=== PATIENT | male | born 1980 | race Caucasian/White ===

== ENCOUNTER 2016-08-29 19:14 | Inpatient (IN) ==
[2016-08-29 22:09] LABS: Basophils # 0.1 K/mcL (0.0-0.2); Basophils % 0.9 %; Eosinophils # 0.1 K/mcL (0.0-0.6); Eosinophils % 1.4 %; Hematocrit 48.3 % (37.5-50.1); Hemoglobin 15.9 g/dL (12.9-16.9); Immature Granulocytes % 0.3 % (0-4); Lymphocytes # 2.9 K/mcL (0.6-4.6); Lymphocytes % 33.1 %; Mean Corpuscular HGB Conc 32.9 g/dL (31.6-35.5); Mean Corpuscular Hemoglobin 28.5 pg (28.0-33.3); Mean Corpuscular Volume 86.7 fL (83.0-100.0); Mean Platelet Volume 8.8 fL (9.4-12.4); Monocytes # 0.7 K/mcL (0.0-1.3); Monocytes % 8.1 %; Neutrophils # 4.9 K/mcL (1.6-8.9); Platelet Count 448 K/mcL (140-400); Red Blood Count 5.57 M/mcL (4.19-5.50); Red Cell Distribution Width 13.1 % (11.5-14.5); Segmented Neutrophils % 56.2 %
[2016-08-29 22:24] LABS: BUN/Creatinine Ratio 13 (6-26); Blood Urea Nitrogen 12 mg/dL (8-26); Calcium 9.8 mg/dL (8.6-10.8); Carbon Dioxide 25 mEq/L (19-29); Chloride 104 mEq/L (98-109); Glucose 86 mg/dL (70-99); Osmolality,Calculated 281 (280-300); Potassium 4.6 mEq/L (3.5-4.5); Sodium 136 mEq/L (136-145); eGFR For African Americans > 60 (> 60); eGFR For Non-African Americans > 60 (> 60)
[2016-08-30] MEDS ORDERED: 0.9 % Sodium Chloride 1,000 ML IVC ONE (00:30)
[2016-08-30] MEDS ORDERED: Ondansetron 4 MG/2 ML VIAL IVP ONE (00:30)
[2016-08-30] MEDS ORDERED: *HR* Morphine 2 MG/ML SYRINGE IVP ONE ×2 (00:30→02:16)
--- NOTE | 2016-08-30 00:47 | Emergency Department Note ---
Disposition Clinical Impression: Cellulitis of abdominal wall Disposition: Admitted As Inpatient Condition: Good Skin/Abscess/FB HPI Chief complaint: ED Skin/Abscess/Foreign Body Stated complaint: "Abdominal Pain/Abdominal Abcess" Time Seen by Provider: 08/30/16 00:19 Source: patient Mode of arrival: private vehicle Limitations: no limitations Nursing Notes Reviewed: Yes Vital Signs Reviewed: Yes HPI Narrative: 35-year-old male with history of MRSA in the past who presents to the ER with a chief complaint of abscess and cellulitis. Patient reports roughly 1 week ago he started noticing a bump on his left lower quadrant. Patient reports that he was seen in another facility where they did an incision and drainage and put him on antibiotics. Patient reports compliance with the medications. He states that over the last few days the redness has intensified and spread over his lower abdomen. He reports nausea and diarrhea at home. He denies vomiting or fevers. He denies IV drug use. No other complaints. Pt Subjective Complaint: abscess/boil Onset (ago): week(s) (1) Tetanus Up to Date: yes Location: Abdomen Severity: moderate Quality: stabbing Consistency: constant Improves with: none Worsens with: none Associated symptoms: Reports: chills, nausea. Denies: fever, vomiting Treatments prior to arrival: antibiotic Home Medications Medication Instructions Recorded Confirmed Acetaminophen [Tylenol] 1,000 mg PO Q6HR PRN 08/30/16 08/30/16 Cephalexin [Keflex] 500 mg PO TID 08/30/16 08/30/16 Sulfamethoxazole/Trimeth DS 1 tab PO BID 08/30/16 08/30/16 [Bactrim DS] Allergies Allergy/AdvReac Type Severity Reaction Status Date / Time hydrocodone AdvReac Itching Verified 08/29/16 21:04 All systems ED: reviewed and negative except as stated. Constitutional: Denies: fever, chills Respiratory: Denies: cough, dyspnea Gastrointestinal: Reports: abdominal pain, nausea, diarrhea. Denies: vomiting Integumentary: Reports: rash, lesions Past Medical History - Past Medical History Attestation: Yes The following information was validated with the patient. Source: patient Medical history: Reports: non-contributory, other Surgical history: Reports: non-contributory Psychiatric history: Reports: no psych history - Social History Smoking Status: Current every day smoker Smokeless Tobacco Status: No Alcohol use: Reports: none Drug use: Reports: marijuana Physical Exam - General Limitations: no limitations General appearance: alert, in no apparent distress - Head Head exam: atraumatic, normocephalic, normal inspection - Eye Eye exam: Present: normal appearance, EOMI - ENT ENT exam: normal exam - Neck Neck exam: Present: normal inspection, full ROM - Chest Chest inspection: Present: normal inspection, symmetric chest wall rise - Respiratory Respiratory exam: Present: normal lung sounds bilaterally - Cardiovascular Cardiovascular exam: Present: regular rate, normal rhythm, normal heart sounds - Abdominal Exam Abdominal exam: Present: soft, tenderness (Tenderness to palpation in the left lower quadrant with a 1 cm circumscribed area of induration with open wound with purulent drainage. There is erythema that extends from the left lower quadrant to the right lower quadrant all infraumbilically.) - Extremities Exam Extremities exam: Present: normal inspection, full ROM - Expanded Upper Extremity Exam Shoulder exam: Present: normal inspection, full ROM Arm exam: Present: normal inspection, full ROM Elbow exam: Present: normal inspection, full ROM Forearm/Wrist exam: Present: normal inspection, full ROM Hand exam: Present: normal inspection, full ROM - Expanded Lower Extremity Exam Hip/Pelvis exam: Present: normal inspection, full ROM Upper leg exam: Present: normal inspection, full ROM Knee exam: Present: normal inspection, full ROM Lower leg exam: Present: normal inspection, full ROM Ankle exam: Present: normal inspection, full ROM Foot/toe exam: Present: normal inspection, full ROM - Neurological Exam Neurological exam: Present: alert - Psychiatric Psychiatric exam: Present: normal affect, normal mood - Skin Skin exam: Present: warm, dry, intact, erythema (Lower abdominal wall) Course Course Narrative: Patient seen and examined. Vital signs reviewed. He has been open wound to the left lower abdominal wall with surrounding cellulitic changes that extends to the right lower quadrant. We will obtain basic labs from him as well as a CT scan of the abdomen and pelvis. - Reevaluation(s) Reevaluation #1: Discussed results of CT and labs with the patient. Patient agreeable with staying in the hospital. Vital Signs Temperature 98 F 08/29/16 21:00 Pulse Rate 84 08/29/16 21:00 Respiratory Rate 20 08/29/16 21:00 Blood Pressure 141/93 08/29/16 21:00 O2 Sat by Pulse Oximetry 99 08/29/16 21:00 Temperature 98.2 F 08/31/16 01:41 Pulse Rate 65 08/31/16 01:41 Respiratory Rate 17 08/31/16 01:41 Blood Pressure 114/75 08/31/16 01:41 O2 Sat by Pulse Oximetry 97 08/31/16 01:41 Oxygen Delivery Oxygen Delivery Room Air Skin/Abscess/Foreign Body - MDM Narrative Medical decision making narrative: 35-year-old male presents to the ER due to lower abdominal abscess and cellulitis. Patient had a drainage of it roughly 5 days ago was started on antibiotics. He presents with worsening redness to his lower abdomen. CT scan here shows no discernible fluid collection. Wound culture and blood culture obtained. Patient given Unasyn and vancomycin. Admitted to the hospitalist service for further management. - Lab Data Lab results reviewed: Yes I reviewed the patient's lab results. Result diagrams: 08/29/16 21:51 08/29/16 21:51 Lab Results 08/29/16 08/29/16 Range/Units 21:51 21:51 WBC 8.8 (4.3-11.1) K/mcL RBC 5.57 H (4.19-5.50) M/mcL Hgb 15.9 (12.9-16.9) g/dL Hct 48.3 (37.5-50.1) % MCV 86.7 (83.0-100.0) fL MCH 28.5 (28.0-33.3) pg MCHC 32.9 (31.6-35.5) g/dL RDW 13.1 (11.5-14.5) % Plt Count 448 H (140-400) K/mcL MPV 8.8 L (9.4-12.4) fL Immature Gran % 0.3 (0-4) % Seg Neutrophils % 56.2 % Lymphocytes % 33.1 % Monocytes % 8.1 % Eosinophils % 1.4 % Basophils % 0.9 % Neutrophils # 4.9 (1.6-8.9) K/mcL Lymphocytes # 2.9 (0.6-4.6) K/mcL Monocytes # 0.7 (0.0-1.3) K/mcL Eosinophils # 0.1 (0.0-0.6) K/mcL Basophils # 0.1 (0.0-0.2) K/mcL Sodium 136 (136-145) mEq/L Potassium 4.6 H (3.5-4.5) mEq/L Chloride 104 (98-109) mEq/L Carbon Dioxide 25 (19-29) mEq/L BUN 12 (8-26) mg/dL Creatinine 0.90 (0.72-1.25) mg/dL Est GFR ( Amer) > 60 (> 60) Est GFR (Non-Af Amer) > 60 (> 60) BUN/Creatinine Ratio 13 (6-26) Glucose 86 (70-99) mg/dL Calculated Osmolality 281 (280-300) Calcium 9.8 (8.6-10.8) mg/dL - Radiology Data Radiology results reviewed: Yes I reviewed the patient's radiology results. Abdomen/Pelvis CT 08/30/16 00:29 IMPRESSION: Minimal cellulitis without evidence for abscess formation. Diverticulosis without scan evidence for diverticulitis. D/ / Howard Stanley MD / Howard Stanley MD Interpreting Provider: Howard Stanley MD S.Lalitha.Radha - [email or web address] Situation: Demographics, MOA Background: Presenting Complaint, Relevant PMH, Meds, & Allergies Assessment: Vital Signs, Course and respsone to treatment, Exam Concerns, Patient/Family Expectation, Pertinant Lab Results, Outstanding Labs Recommendation: Barrier(s) to disposition, Recommendation based on pending studies, treatments, or consults S.B.A.[email or web address] Report Given to: Dr. Freddy Pereyra Repor Time: 02:54 (Requested dose of vancomycin.) Attestation Statement - Attestation Attestation: I personally interviewed and examined this patient and my medical decision- making was reviewed with the ED Resident Physician, Dr. Peralta. I agree with the documented findings, disposition and treatment plan as described in the documentation. Patient is a 35-year-old white male otherwise healthy presents to the emergency department with worsening cellulitis. Patient had an abdominal wall cutaneous abscess I&D approximately 7 days ago. Patient had a dressing in place overlying the I&D site on the left abdominal wall, and has been on antibiotics orally at home since that time. Despite being on antibiotics and taking as directed, the redness surrounding the I&D site in the left abdominal wall has progressed across the lower abdominal wall. Patient complains of nausea but denies any vomiting, no fevers or chills, no worsening but does complain of persistent pain to the incision and drainage site. Patient is hemodynamically stable. Labs overall are unremarkable. We did pursue CT imaging to rule out a large intra-abdominal abscess that could possibly require surgical debridement. CT shows evidence of abdominal wall cellulitis but no distinct abscess formation. We did initiate IV antibiotics in the ED and the plan will be to admit the patient for ongoing IV antibiotics secondary to outpatient treatment failure. Patient's blood pressure has been stable throughout the ED course. Patient's resting comfortably at this time and will be admitted to the hospitalist service.
[2016-08-30] MEDS ORDERED: Ampicillin/Sulbactam 1,500 MG in 0.9 % Sodium Chloride Mini Bag 100 ML IVPB ONE (02:17)
[2016-08-30] MEDS ORDERED: Vancomycin 1,000 MG in D5% in Water 250 ML IVPB ONE (02:52)
[2016-08-30] MEDS ORDERED: *HR* Morphine 2 MG/ML SYRINGE IVP PRN (05:10)
[2016-08-30] MEDS ORDERED: Ibuprofen 400 MG TABLET PO PRN (07:51)
[2016-08-30] MEDS ORDERED: Ondansetron 4 MG/2 ML VIAL IVP PRN (07:51)
[2016-08-30] MEDS ORDERED: Naloxone 0.4 MG/ML INJ IVP PRN (07:51)
[2016-08-30] MEDS ORDERED: Acetaminophen 325 MG TABLET PO PRN (07:51)
--- NOTE | 2016-08-30 08:09 | Internal Med History&Physical ---
Date of Encounter: 08/30/16 Time of Encounter: 08:07 Assessment and Plan (1) Cellulitis of abdominal wall Current visit: Yes Status: Acute Patient failed outpatient treatment with PO antibiotics. Site improving with IV vancomycin/unasyn overnight. Abscess opened one week ago and continues to actively drain. - Continue IV vancomycin and Unasyn - Consult wound nursing for assistance with appropriate dressing and wound care - Pain medications PRN - try to transition to PO today - Blood culture obtained in ER - Contact [facility] to see if cultures performed off I&D Internal Medicine - H&P: HPI Chief complaint: LLQ abscess, cellulitis Admitted From: Emergency Dept Plans for Post Hospital Care: Home History of present illness: Mr. Langley is a 35 year old male with history of multiple MRSA abscesses who presented to the ER overnight with complaint of left lower quadrant cellulitis and abscess. He was evaluated one week ago at [facility] in the ER and was found to have an abscess at his left lower quadrant. The site was I&Ded with reportedly return of large amount of purulent material. The site was wide open and he was not instructed to use any packing. He was placed on two PO antibiotics - bactrim and keflex - which he took as prescribed. The cellulitis extended up his abdomen over the past several days and the pain became more intense. He has had subjective fever and chills over the past few days. In the ER he had a CT of the abdomen/pelvis which showed minimal cellulitis and no abscess. He was given a dose of IV vancomycin and Unasyn overnight. He continues to have pain at the site this morning, but thinks the area of cellulitis has receded. Past Med Surg Social Fam HX - Past Medical History Medical history: non-contributory, other (Multiple axillary and groin abscesses positive for MRSA) Psychiatric history: no psych history - Past Surgical History Surgical History: other (Axillary and groin sweat gland resections because of repeat MRSA infections) - Social History Smoking Status: Current every day smoker Packs per day: 1 Smokeless Tobacco Status: Yes Alcohol use: none Drug use: marijuana Occupational status: employed Current living situation: Home Additional social history: Lives at home with , works in automotive industry - Family History Mother Hx Family Cancer: Yes (Lung cancer) Internal Medicine - H&P: Meds Acetaminophen [Tylenol] 1,000 mg PO Q6HR PRN 08/30/16 [History] Cephalexin [Keflex] 500 mg PO TID 08/30/16 [History] Sulfamethoxazole/Trimeth DS [Bactrim DS] 1 tab PO BID 08/30/16 [History] Allergies hydrocodone Adverse Reaction (Verified 08/29/16 21:04) Itching All Systems PM: A 10-system review of systems was performed and is negative for pertinent findings except as documented above in the HPI. - Constitutional Vitals: Temp Pulse Resp BP Pulse Ox 98.3 F 62 16 117/72 96 08/30/16 07:28 08/30/16 07:28 08/30/16 07:28 08/30/16 07:28 08/30/16 07:28 General appearance: Present: A&O X 3 Exam: Patient in no acute distress, resting comfortably in bed - Head Head exam: Present: atraumatic - Eye Eye exam: Present: EOMI, sclera anicteric - ENT ENT exam: Present: mucous membranes moist - Neck Neck exam general surgery: Present: supple - Respiratory Respiratory exam: Present: CTAB - Cardiovascular Cardiovascular exam: Present: RRR. Absent: diastolic murmur, gallop, rubs, systolic murmur - GI/Abdominal GI/Abdominal exam: Present: normal bowel sounds, soft. Absent: distended Additional comments: LLQ with open lesion, approximately 1cm in diameter with purulent drainage. Mild patchy erythema surrounding site. - Extremities Exam Extremities exam: Absent: pedal edema - Neurological Exam Neurological exam: Present: no focal deficits - Skin Skin exam: Absent: rash Internal Med - H&P Results - Labs CBC & Chem 7: 08/29/16 21:51 08/29/16 21:51
[2016-08-30] MEDS: *HR* HYDROmorphone (PF) 1 MG/ML SYRINGE IVP PRN ×3 (09:34→20:47)
[2016-08-30] MEDS: Ampicillin/Sulbactam 3,000 MG in 0.9 % Sodium Chloride Mini Bag 100 ML IVPB SCH ×3 (09:35→20:10)
[2016-08-30] MEDS: *HR* OxyCODONE Immed Rel 5 MG TABLET PO PRN ×2 (11:40→18:42)
[2016-08-30] MEDS: Vancomycin 1,500 MG in D5% in Water 250 ML IVPB SCH ×2 (13:38→23:54)
[2016-08-31] MEDS: *HR* HYDROmorphone (PF) 1 MG/ML SYRINGE IVP PRN ×4 (02:01→20:34)
[2016-08-31] MEDS: Ampicillin/Sulbactam 3,000 MG in 0.9 % Sodium Chloride Mini Bag 100 ML IVPB SCH ×3 (02:04→15:42)
[2016-08-31] MEDS: *HR* Enoxaparin 40 MG/0.4 ML SYRINGE SQ SCH (05:23)
[2016-08-31 06:51] LABS: Basophils # 0.1 K/mcL (0.0-0.2); Eosinophils # 0.1 K/mcL (0.0-0.6); Eosinophils % 1.7 %; Hematocrit 42.9 % (37.5-50.1); Immature Granulocytes % 0.4 % (0-4); Lymphocytes # 3.2 K/mcL (0.6-4.6); Lymphocytes % 39.4 %; Mean Corpuscular HGB Conc 32.9 g/dL (31.6-35.5); Mean Corpuscular Hemoglobin 27.8 pg (28.0-33.3); Mean Corpuscular Volume 84.6 fL (83.0-100.0); Mean Platelet Volume 8.7 fL (9.4-12.4); Monocytes # 0.8 K/mcL (0.0-1.3); Monocytes % 9.6 %; Neutrophils # 3.9 K/mcL (1.6-8.9); Platelet Count 375 K/mcL (140-400); Red Blood Count 5.07 M/mcL (4.19-5.50); Segmented Neutrophils % 47.9 %
[2016-08-31 07:05] LABS: BUN/Creatinine Ratio 19 (6-26); Blood Urea Nitrogen 14 mg/dL (8-26); Carbon Dioxide 24 mEq/L (19-29); Chloride 106 mEq/L (98-109); Glucose 108 mg/dL (70-99); Osmolality,Calculated 287 (280-300); Potassium 4.3 mEq/L (3.5-4.5); Sodium 138 mEq/L (136-145); eGFR For African Americans > 60 (> 60); eGFR For Non-African Americans > 60 (> 60)
[2016-08-31 07:07] LABS: Hemoglobin 14.1 g/dL (12.9-16.9)
[2016-08-31 07:17] LABS: Calcium 9.1 mg/dL (8.6-10.8)
[2016-08-31] MEDS: Vancomycin 1,500 MG in D5% in Water 250 ML IVPB SCH (12:45)
[2016-08-31] MEDS: *HR* OxyCODONE Immed Rel 5 MG TABLET PO PRN ×2 (12:46→23:12)
--- NOTE | 2016-08-31 16:55 | Internal Med Progress Note ---
Date of Encounter: 08/31/16 Time of Encounter: 12:30 - Assessment and plan (1) Cellulitis of abdominal wall Current Visit: Yes Status: Acute Assessment and plan: history of multiple MRSA abscess, last 12 years ago. Patient had I&D at [facility] and was discharged on Bactrim and Keflex. He reports compliance to antiobiotics with persistent purulent drainage. CT abdomen and pelvis shows minimal cellulitis without evidence for abscess formation, diverticulosis without scan evidence for diverticulitis. PLAN: follow up results of wound and blood cultures. Request records from [facility] ED including wound culture results after he had I&D. continue IV Vancomycin. Pain control with oxycodone. (2) Tobacco use Current Visit: No Status: Chronic Assessment and plan: counseled to quit. - Subjective Interval history: Patient reports abdominal pain is better compared to admission. no nausea. no vomiting. - Constitutional Vitals: Temp Pulse Resp BP Pulse Ox 98.3 F 75 16 115/70 97 08/31/16 15:17 08/31/16 15:17 08/31/16 15:17 08/31/16 15:17 08/31/16 15:17 General appearance: Present: cooperative, A&O X 3, pleasant, no acute distress, answers questions appropriately - Eye Eye exam: Present: PERRL, sclera anicteric - Neck Neck exam general surgery: Present: supple, trachea midline. Absent: lymphadenopathy - Respiratory Respiratory exam: Present: CTAB - Cardiovascular Cardiovascular exam: Present: RRR - GI/Abdominal GI/Abdominal exam: Present: normal bowel sounds, soft, tenderness (LLQ wound site). Absent: distended - Extremities Exam Extremities exam: Absent: pedal edema - Back Exam Back exam: Absent: CVA tenderness (L), CVA tenderness (R) - Neurological Exam Neurological exam: Present: alert, oriented X3, no focal deficits, strengths equal and symetr throughout. Absent: facial droop, speech deficit - Skin Additional comments: LLQ Abdominal wall: there is an open wound of ~ 1cm in diameter with purulent drainage and mild surrounding erythema. Internal Medicine: Result - Labs CBC & Chem 7: 08/31/16 06:15 08/31/16 06:15 Labs: Short CBC 08/31/16 Range/Units 06:15 WBC 8.0 (4.3-11.1) K/mcL Hgb 14.1 D (12.9-16.9) g/dL Hct 42.9 (37.5-50.1) % Plt Count 375 (140-400) K/mcL Neutrophils # 3.9 (1.6-8.9) K/mcL BMP 08/31/16 06:15 Sodium 138 Potassium 4.3 Chloride 106 Carbon Dioxide 24 BUN 14 Creatinine 0.73 Glucose 108 H Calcium 9.1 Consult Discharge Plan - Plan Referrals: NO,PCP [Primary Care Provider] -
[2016-09-01] MEDS: Vancomycin 1,500 MG in D5% in Water 250 ML IVPB SCH ×2 (00:34→21:51)
[2016-09-01] MEDS: *HR* HYDROmorphone (PF) 1 MG/ML SYRINGE IVP PRN ×4 (02:43→21:24)
[2016-09-01] MEDS: *HR* OxyCODONE Immed Rel 5 MG TABLET PO PRN ×3 (03:50→19:01)
[2016-09-01 05:21] LABS: Hematocrit 43.1 % (37.5-50.1); Hemoglobin 14.3 g/dL (12.9-16.9); Mean Corpuscular HGB Conc 33.2 g/dL (31.6-35.5); Mean Corpuscular Hemoglobin 28.7 pg (28.0-33.3); Mean Corpuscular Volume 86.5 fL (83.0-100.0); Platelet Count 411 K/mcL (140-400); Red Blood Count 4.98 M/mcL (4.19-5.50); Red Cell Distribution Width 12.9 % (11.5-14.5); Segmented Neutrophils % 58.4 %
[2016-09-01 05:22] LABS: Basophils # 0.1 K/mcL (0.0-0.2); Basophils % 0.6 %; Eosinophils # 0.2 K/mcL (0.0-0.6); Eosinophils % 1.4 %; Immature Granulocytes % 0.7 % (0-4); Lymphocytes # 3.4 K/mcL (0.6-4.6); Lymphocytes % 30.7 %; Monocytes # 0.9 K/mcL (0.0-1.3); Monocytes % 8.2 %; Neutrophils # 6.4 K/mcL (1.6-8.9)
[2016-09-01 05:41] LABS: Magnesium 1.8 mg/dL (1.6-2.6); Phosphorous 4.3 mg/dL (2.3-4.7)
[2016-09-01 05:42] LABS: BUN/Creatinine Ratio 24 (6-26); Blood Urea Nitrogen 18 mg/dL (8-26); Calcium 8.7 mg/dL (8.6-10.8); Carbon Dioxide 24 mEq/L (19-29); Chloride 105 mEq/L (98-109); Glucose 85 mg/dL (70-99); Osmolality,Calculated 291 (280-300); Potassium 3.6 mEq/L (3.5-4.5); Sodium 140 mEq/L (136-145); eGFR For African Americans > 60 (> 60); eGFR For Non-African Americans > 60 (> 60)
[2016-09-01] MEDS: *HR* Enoxaparin 40 MG/0.4 ML SYRINGE SQ SCH (06:04)
[2016-09-01] MEDS: Vancomycin 1,250 MG in D5% in Water 250 ML IVPB SCH ×2 (14:29→21:24)
--- NOTE | 2016-09-01 14:50 | Internal Med Progress Note ---
Date of Encounter: 09/01/16 Time of Encounter: 14:00 - Assessment and plan (1) Cellulitis of abdominal wall Current Visit: Yes Status: Acute Assessment and plan: history of multiple MRSA abscess. Last hospitalization in 2004 for left axillary abscess that grew MRSA but had multiple boils treated as outpatient since then. He presented to [facility] ED where he had I&D at [facility] and was discharged on Bactrim and Keflex. He reports compliance to antiobiotics with persistent purulent drainage. CT abdomen and pelvis shows minimal cellulitis without evidence for abscess formation, diverticulosis without scan evidence for diverticulitis. 08/30/16: wound culture growing GPC. clinically improving slowly. continue IV Vancomycin. I review records from [facility] ED and no wound culture was ordered. De-escalate antibiotics to oral after final results to wound cultures from this admission. Pain control with oxycodone. (2) Tobacco use Current Visit: No Status: Chronic Assessment and plan: counseled to quit. - Subjective Interval history: Patient reports abdominal wall pain continues to improve. no nausea. no vomiting. - Constitutional Vitals: Temp Pulse Resp BP Pulse Ox 97.8 F 66 16 125/73 98 09/01/16 10:46 09/01/16 10:46 09/01/16 10:46 09/01/16 10:46 09/01/16 10:46 General appearance: Present: cooperative, A&O X 3, pleasant, no acute distress, answers questions appropriately - Eye Eye exam: Present: PERRL, sclera anicteric - ENT ENT exam: Present: mucous membranes moist - Neck Neck exam general surgery: Present: supple, trachea midline. Absent: lymphadenopathy - Respiratory Respiratory exam: Present: CTAB. Absent: wheezes - Cardiovascular Cardiovascular exam: Present: RRR - GI/Abdominal GI/Abdominal exam: Present: normal bowel sounds, soft. Absent: distended, tenderness - Extremities Exam Extremities exam: Absent: joint swelling, pedal edema - Back Exam Back exam: Absent: CVA tenderness (L), CVA tenderness (R) - Neurological Exam Neurological exam: Present: alert, oriented X3, no focal deficits, strengths equal and symetr throughout. Absent: facial droop, speech deficit - Skin Additional comments: LLQ Abdominal wall: there is an open wound of ~ 1cm in diameter with minimal purulent drainage and fading surrounding erythema. Internal Medicine: Result - Labs CBC & Chem 7: 09/01/16 04:09 09/01/16 04:09 Labs: Short CBC 09/01/16 Range/Units 04:09 WBC 11.0 (4.3-11.1) K/mcL Hgb 14.3 (12.9-16.9) g/dL Hct 43.1 (37.5-50.1) % Plt Count 411 H (140-400) K/mcL Neutrophils # 6.4 (1.6-8.9) K/mcL BMP 09/01/16 04:09 Sodium 140 Potassium 3.6 Chloride 105 Carbon Dioxide 24 BUN 18 Creatinine 0.74 Glucose 85 Calcium 8.7 Consult Discharge Plan - Plan Referrals: Tessie Gómez CNP [Advanced Practice Nurse] - 10/12/16 8:00 am (New get established appt. Please bring your photo ID, insurance card and any medications you are on. Please bring your new patient packet you will receive in the mail. If you need to cancel, please give a 24 hour notice. Thank youi)
[2016-09-02] MEDS: *HR* OxyCODONE Immed Rel 5 MG TABLET PO PRN ×2 (00:51→05:27)
[2016-09-02] MEDS: *HR* HYDROmorphone (PF) 1 MG/ML SYRINGE IVP PRN ×2 (02:05→08:48)
[2016-09-02 04:36] LABS: Basophils # 0.1 K/mcL (0.0-0.2); Basophils % 0.7 %; Eosinophils # 0.2 K/mcL (0.0-0.6); Eosinophils % 1.4 %; Hematocrit 41.8 % (37.5-50.1); Hemoglobin 13.8 g/dL (12.9-16.9); Lymphocytes # 3.5 K/mcL (0.6-4.6); Lymphocytes % 31.2 %; Mean Corpuscular Hemoglobin 28.1 pg (28.0-33.3); Mean Corpuscular Volume 85.1 fL (83.0-100.0); Mean Platelet Volume 8.6 fL (9.4-12.4); Monocytes # 0.9 K/mcL (0.0-1.3); Monocytes % 7.9 %; Neutrophils # 6.5 K/mcL (1.6-8.9); Platelet Count 374 K/mcL (140-400); Red Blood Count 4.91 M/mcL (4.19-5.50); Red Cell Distribution Width 12.6 % (11.5-14.5); Segmented Neutrophils % 57.8 %
[2016-09-02 04:56] LABS: BUN/Creatinine Ratio 19 (6-26); Blood Urea Nitrogen 15 mg/dL (8-26); Calcium 9.1 mg/dL (8.6-10.8); Carbon Dioxide 26 mEq/L (19-29); Chloride 104 mEq/L (98-109); Glucose 84 mg/dL (70-99); Osmolality,Calculated 288 (280-300); Potassium 4.1 mEq/L (3.5-4.5); Sodium 139 mEq/L (136-145); eGFR For African Americans > 60 (> 60); eGFR For Non-African Americans > 60 (> 60)
[2016-09-02] MEDS: *HR* Enoxaparin 40 MG/0.4 ML SYRINGE SQ SCH (05:27)
[2016-09-02] MEDS: Vancomycin 1,250 MG in D5% in Water 250 ML IVPB SCH (05:27)
[2016-09-02 07:25] VITALS: BP 121/77
--- NOTE | 2016-09-02 09:36 | Discharge Summary ---
Date of Encounter: 09/02/16 Time of Encounter: 09:15 - Discharge Diagnosis (1) Cellulitis of abdominal wall Priority: Primary Status: Acute (2) Tobacco use Priority: Secondary Status: Chronic - Discharge Medications Prescriptions: OxyCODONE Immed Rel [Roxicodone 5 MG] 2.5 mg PO Q8HR #10 tablet Doxycycline 100 mg PO BID #14 capsule Home Medications: Doxycycline 100 mg PO BID #14 capsule 09/02/16 [Rx] OxyCODONE Immed Rel [Roxicodone 5 MG] 2.5 mg PO Q8HR #10 tablet 09/02/16 [Rx] Allergies/Adverse Reactions: Allergies hydrocodone Adverse Reaction (Verified 08/29/16 21:04) Itching Date of admission: 08/30/16 12:15 Primary care physician: PCP NO - Patient Status Disposition: Home, Self-Care Condition: Good Functional capacity at discharge: independent ambulation Overall status at discharge: patient is progressing back to baseline - Discharge Instructions Follow Up With: Tessie Gómez [employer] [Advanced Practice Nurse] - 10/12/16 8:00 am (New get established appt. Please bring your photo ID, insurance card and any medications you are on. Please bring your new patient packet you will receive in the mail. If you need to cancel, please give a 24 hour notice. Thank youi) Forms: Work/School Release Additional Instructions: CHANGE DRESSING DAILY FOLLOW UP WITH PCP NEXT WEEK MAY RETURN TO WORK NEXT MONDAY IF NO WORSENING OF PURULENT DISCHARGE OR SURROUNDING ERYTHEMA TAKE ANTIBIOTICS PRESCRIBED (FIRST DOSE OF DOXYCYCLINE AT 4PM TODAY 09/02/16) - Diet and Activity Activity: resume usual activities as tolerated Diet: regular diet Interval History: Patient reports improvement of abdominal pain. Hospital course: Mr. Langley is a 35 year old male with past medical history of multiple MRSA abscesses in the past and tobacco use. Last hospitalization in 2004 for left axillary abscess that grew MRSA but had multiple boils treated as outpatient since then. A week ago, he was evaluated at [facility] where he had I&D (no wound culture was sent) and was prescribed Bactrim and Keflex. He reports compliance to antibiotics with persistent abdominal pain and copious purulent drainage. Patient admitted with left lower quadrant abdominal abscess with associated surrounding slightly. He was started on IV vancomycin with clinical improvement of his skin infection. CT abdomen and pelvis shows minimal cellulitis without evidence for abscess formation, diverticulosis without scan evidence for diverticulitis. 08/31/16: wound culture grew MRSA sensitive to Bactrim, tetracycline and vancomycin. PLAN: Doxycycline for a total of 10 days. - Time Spent with Patient Total time spent providing and/or coordinating discharge services: - Constitutional Vitals: Temp Pulse Resp BP Pulse Ox 98.1 F 70 16 121/77 96 09/02/16 07:24 09/02/16 07:24 09/02/16 07:24 09/02/16 07:24 09/02/16 07:24 General appearance: Present: cooperative, A&O X 3, pleasant, no acute distress, answers questions appropriately - Eye Eye exam: Present: PERRL, sclera anicteric - ENT ENT exam: Present: mucous membranes moist - Neck Neck exam general surgery: Present: supple, trachea midline. Absent: lymphadenopathy - Respiratory Respiratory exam: Present: CTAB - Cardiovascular Cardiovascular exam: Present: RRR - GI/Abdominal GI/Abdominal exam: Present: normal bowel sounds, soft. Absent: distended, tenderness - Extremities Exam Extremities exam: Absent: pedal edema - Back Exam Back exam: Absent: CVA tenderness (L), CVA tenderness (R) - Neurological Exam Neurological exam: Present: alert, oriented X3, no focal deficits, strengths equal and symetr throughout. Absent: facial droop, speech deficit - Skin Skin exam: Absent: intact Additional comments: LLQ Abdominal wall: there is an open wound of ~ 1cm in diameter with minimal purulent drainage and fading surrounding erythema.
[2016-09-02] MEDS ORDERED: Aminoglycoside Consult 1 EACH MC ONE (11:37)
== END 2016-09-02 11:38 | disposition home or self-care (01) | DRG 383 ==
LOC: EMEROO 19:14 → 3ANU 19:14 → SUATTDRO 08-30 12:15
PROVIDERS: ADMIT Pediatrics; ATTEND Internal Medicine

== ENCOUNTER 2019-04-21 23:21 | Inpatient (IN) ==
[2019-04-21] MEDS ORDERED: 0.9 % Sodium Chloride 1,000 ML IVC ONE (23:32)
[2019-04-21] MEDS ORDERED: Isovue-370 500 ML BOTTLE IVP ONE (23:33)
[2019-04-21] MEDS ORDERED: Piperacillin/Tazobactam 3.375 GM in 0.9 % Sodium Chloride Mini Bag 100 ML IVPB ONE (23:36)
[2019-04-22] MEDS ORDERED: Morphine Sulfate 2 MG/ML SYRINGE IVP ONE (00:03)
[2019-04-22 00:13] LABS: INR 1.1
[2019-04-22 00:16] LABS: Activated Partial Thrombo Time 33.6 Seconds (26.0-36.0)
[2019-04-22 00:23] LABS: Basophils % 0.3 %; Eosinophils # 0.1 K/mcL (0.0-0.6); Eosinophils % 0.4 %; Hematocrit 40.6 % (37.5-50.1); Hemoglobin 14.1 g/dL (12.9-16.9); Immature Granulocytes % 0.3 % (0-4); Lymphocytes # 2.4 K/mcL (0.6-4.6); Mean Corpuscular HGB Conc 34.7 g/dL (31.6-35.5); Mean Corpuscular Hemoglobin 29.1 pg (28.0-33.3); Mean Corpuscular Volume 83.7 fL (83.0-100.0); Mean Platelet Volume 8.5 fL (9.4-12.4); Monocytes # 0.8 K/mcL (0.0-1.3); Monocytes % 6.6 %; Neutrophils # 8.6 K/mcL (1.6-8.9); Platelet Count 365 K/mcL (140-400); Red Blood Count 4.85 M/mcL (4.19-5.50); Red Cell Distribution Width 13.4 % (11.5-14.5); Segmented Neutrophils % 72.4 %; White Blood Count 11.9 K/mcL (4.3-11.1)
[2019-04-22 00:28] LABS: Alanine Aminotransferase 9 Units/L (7-52); Albumin 4.1 g/dL (3.5-5.7); Albumin/Globulin Ratio 1.1 (1.1-2.2); Alkaline Phosphatase 94 Units/L (34-104); Aspartate Amino Transferase 17 Units/L (13-39); BUN/Creatinine Ratio 13 (6-26); Bilirubin,Direct 0.1 mg/dL (0.0-0.2); Bilirubin,Indirect 0.4 mg/dL (0.0-1.0); Bilirubin,Total 0.5 mg/dL (0.3-1.0); Blood Urea Nitrogen 9 mg/dL (6-20); Carbon Dioxide 26 mEq/L (23-29); Chloride 102 mEq/L (98-107); Globulin 3.9 g/dL (2.4-3.5); Glucose 110 mg/dL (70-105); Magnesium 1.9 mg/dL (1.6-2.6); Osmolality,Calculated 281 (280-300); Phosphorous 3.5 mg/dL (2.7-4.5); Potassium 3.7 mEq/L (3.5-5.1); Sodium 136 mEq/L (136-145); Troponin I < 0.03 ng/mL (< 0.04); eGFR For African Americans > 60 (> 60); eGFR For Non-African Americans > 60 (> 60)
[2019-04-22 01:02] LABS: Bilirubin,Urine Negative (Negative); Blood,Urine Negative (Negative); Clarity,Urine Clear (Clear); Color,Urine Yellow (Yellow); Glucose,Urine (UA) Normal (Normal); Ketones,Urine Negative (Negative); Leukocyte Esterase,Urine Negative (Negative); Nitrite,Urine Negative (Negative); PH,Urine 6.5 pH Units (5.0-8.0); Protein,Urine Negative (Neg-Trace); Specific Gravity,Urine 1.021 (1.010-1.025); Urobilinogen,Urine Normal (Normal)
[2019-04-22] MEDS ORDERED: *HR* HYDROmorphone (PF) 1 MG/ML SYRINGE IVP ONE ×3 (01:16→09:37)
[2019-04-22] MEDS ORDERED: Ketorolac 30 MG/ML VIAL IVP ONE (05:01)
[2019-04-22] MEDS ORDERED: Naloxone 0.4 MG/ML INJ IVP PRN ×2 (05:02→20:03)
[2019-04-22] MEDS ORDERED: Acetaminophen 325 MG TABLET PO PRN (05:07)
[2019-04-22] MEDS: Ringers Solution, Lactated 1,000 ML IVC SCH ×3 (05:41→21:07)
[2019-04-22] MEDS ORDERED: *HR* HYDROcodone/Acet 5/325 mg TABLET PO PRN (07:00)
[2019-04-22] MEDS ORDERED: traMADol 50 MG TABLET PO PRN ×2 (07:00→20:03)
[2019-04-22] MEDS ORDERED: Cefepime HCl 2,000 MG in Water for inj. (sterile) 20 ML IVP SCH (09:00)
[2019-04-22] MEDS ORDERED: Ketorolac 30 MG/ML VIAL IVP PRN (09:42)
[2019-04-22 10:01] LABS: Amphetamine Screen,Urine Positive ng/mL (Cutoff=1000); Barbiturate Screen,Urine Negative ng/mL (Cutoff=200); Benzodiazepines Screen,Urine Negative ng/mL (Cutoff=200); Cannabinoid Screen,Urine Positive ng/mL (Cutoff = 50); Cocaine Screen,Urine Negative ng/mL (Cutoff= 300); Opiate Screen,Urine Positive ng/mL (Cutoff=300); Phencyclidine Screen,Urine Negative ng/mL (Cutoff=25)
[2019-04-22] MEDS ORDERED: *HR* OxyCODONE Immed Rel 5 MG TABLET PO PRN (14:15)
[2019-04-22] MEDS ORDERED: Ketorolac 30 MG/ML VIAL IVP SCH ×2 (16:00→18:00)
[2019-04-22] MEDS ORDERED: Albuterol 2.5 MG/3 ML NEBULIZER IH ONE (17:16)
[2019-04-22] MEDS ORDERED: Ondansetron 4 MG/2 ML VIAL IVP ONE ×2 (17:28→20:03)
[2019-04-22] MEDS ORDERED: *HR* Promethazine 25 MG/ML VIAL IVP PRN ×2 (17:28→20:03)
[2019-04-22] MEDS ORDERED: *HR* Meperidine 25 MG/ML SYRINGE IVP PRN ×2 (17:28→20:03)
[2019-04-22] MEDS ORDERED: Propofol 500 MG/50 ML INFUS..BTL ONE (17:42)
[2019-04-22] MEDS ORDERED: Lidocaine -MPF 2% 2 ML VIAL ONE (17:42)
[2019-04-22] MEDS ORDERED: *HR* FentaNYL (PF) 100 MCG/2 ML VIAL ONE (17:42)
[2019-04-22] MEDS ORDERED: Ondansetron 4 MG/2 ML VIAL ONE (18:13)
[2019-04-22] MEDS: *HR* HYDROmorphone (PF) 1 MG/ML SYRINGE IVP PRN ×2 (19:01→19:29)
[2019-04-22] MEDS ORDERED: *HR* HYDROmorphone (PF) 1 MG/ML SYRINGE IVP PRN (20:03)
[2019-04-22] MEDS: *HR* OxyCODONE Immed Rel 5 MG TABLET PO PRN (21:06)
[2019-04-22] MEDS: Cefepime HCl 2,000 MG in Water for inj. (sterile) 20 ML IVP SCH (21:09)
[2019-04-22 23:26] LABS: Acinetobacter baumannii by PCR Not Detected (Not Detect); Candida albicans by PCR Not Detected (Not Detect); Candida glabrata by PCR Not Detected (Not Detect); Candida krusei by PCR Not Detected (Not Detect); Candida parapsilosis by PCR Not Detected (Not Detect); Candida tropicalis by PCR Not Detected (Not Detect); Enterobacter cloacae Cmplx PCR Not Detected (Not Detect); Enterobacteriaceae by PCR Not Detected (Not Detect); Enterococcus by PCR Not Detected (Not Detect); Escherichia coli by PCR Not Detected (Not Detect); Klebsiella oxytoca by PCR Not Detected (Not Detect); Klebsiella pneumoniae by PCR Not Detected (Not Detect); Proteus by PCR Not Detected (Not Detect); Pseudomonas aeruginosa by PCR Not Detected (Not Detect); Serratia marcescens by PCR Not Detected (Not Detect); Staphylococcus aureus by PCR DETECTED (Not Detect); Streptococcus agalactiae(B)PCR Not Detected (Not Detect); Streptococcus by PCR Not Detected (Not Detect); Streptococcus pneumoniae PCR Not Detected (Not Detect); Streptococcus pyogenes (A) PCR Not Detected (Not Detect); blaKPC Carbapenem-Resist Gene Not Detected (Not Detect); mecA Methicillin-Resist Gene DETECTED (Not Detect); vanA/B Vancomycin-Resist Genes Not Detected (Not Detect)
[2019-04-22] MEDS: Ketorolac 30 MG/ML VIAL IVP SCH (23:51)
[2019-04-23] MEDS: *HR* OxyCODONE Immed Rel 5 MG TABLET PO PRN ×3 (03:40→18:15)
[2019-04-23] MEDS: Ketorolac 30 MG/ML VIAL IVP SCH ×3 (05:34→23:12)
[2019-04-23] MEDS: Ringers Solution, Lactated 1,000 ML IVC SCH ×2 (05:34→15:59)
[2019-04-23 06:56] LABS: Basophils # 0.1 K/mcL (0.0-0.2); Basophils % 0.8 %; Eosinophils # 0.1 K/mcL (0.0-0.6); Eosinophils % 1.7 %; Hematocrit 35.6 % (37.5-50.1); Immature Granulocytes % 0.1 % (0-4); Lymphocytes # 2.5 K/mcL (0.6-4.6); Lymphocytes % 32.8 %; Mean Corpuscular HGB Conc 33.1 g/dL (31.6-35.5); Mean Corpuscular Hemoglobin 28.7 pg (28.0-33.3); Mean Corpuscular Volume 86.6 fL (83.0-100.0); Mean Platelet Volume 8.4 fL (9.4-12.4); Monocytes # 0.9 K/mcL (0.0-1.3); Monocytes % 11.8 %; Platelet Count 278 K/mcL (140-400); Red Blood Count 4.11 M/mcL (4.19-5.50); Red Cell Distribution Width 13.4 % (11.5-14.5); Segmented Neutrophils % 52.8 %; White Blood Count 7.5 K/mcL (4.3-11.1)
[2019-04-23 06:57] LABS: Hemoglobin 11.8 g/dL (12.9-16.9)
[2019-04-23 07:17] LABS: BUN/Creatinine Ratio 15 (6-26); Blood Urea Nitrogen 14 mg/dL (6-20); Calcium 8.7 mg/dL (8.6-10.3); Carbon Dioxide 28 mEq/L (23-29); Chloride 103 mEq/L (98-107); Glucose 121 mg/dL (70-105); Osmolality,Calculated 286 (280-300); Potassium 4.1 mEq/L (3.5-5.1); Sodium 137 mEq/L (136-145); eGFR For African Americans > 60 (> 60); eGFR For Non-African Americans > 60 (> 60)
[2019-04-23] MEDS: Cefepime HCl 2,000 MG in Water for inj. (sterile) 20 ML IVP SCH ×2 (08:53→20:20)
[2019-04-23 15:28] LABS: Rheumatoid Factor 19 IU/mL (Less than 14)
[2019-04-23 15:51] LABS: Hepatitis B Surface Antibody > 850.00 mIU/mL
[2019-04-23 16:01] LABS: Hepatitis B Surface Antigen Nonreactive (Nonreactive)
[2019-04-23 16:30] LABS: HIV-1&2 Antibody & p24 Ag Nonreactive (Nonreactive)
[2019-04-23 17:52] LABS: Hepatitis C Virus Antibody Reactive (Nonreactive)
[2019-04-24] MEDS: *HR* OxyCODONE Immed Rel 5 MG TABLET PO PRN ×3 (03:21→19:50)
[2019-04-24 06:03] LABS: Basophils # 0.1 K/mcL (0.0-0.2); Basophils % 0.9 %; Eosinophils # 0.2 K/mcL (0.0-0.6); Eosinophils % 3.4 %; Hematocrit 36.6 % (37.5-50.1); Hemoglobin 11.9 g/dL (12.9-16.9); Immature Granulocytes % 0.3 % (0-4); Lymphocytes # 2.7 K/mcL (0.6-4.6); Lymphocytes % 41.6 %; Mean Corpuscular HGB Conc 32.5 g/dL (31.6-35.5); Mean Corpuscular Hemoglobin 28.6 pg (28.0-33.3); Mean Platelet Volume 8.8 fL (9.4-12.4); Monocytes # 0.8 K/mcL (0.0-1.3); Monocytes % 11.9 %; Neutrophils # 2.7 K/mcL (1.6-8.9); Platelet Count 305 K/mcL (140-400); Red Blood Count 4.16 M/mcL (4.19-5.50); Red Cell Distribution Width 13.2 % (11.5-14.5); Segmented Neutrophils % 41.9 %; White Blood Count 6.5 K/mcL (4.3-11.1)
[2019-04-24 06:24] LABS: BUN/Creatinine Ratio 31 (6-26); Blood Urea Nitrogen 23 mg/dL (6-20); Calcium 8.7 mg/dL (8.6-10.3); Carbon Dioxide 26 mEq/L (23-29); Chloride 104 mEq/L (98-107); Glucose 108 mg/dL (70-105); Osmolality,Calculated 288 (280-300); Potassium 4.1 mEq/L (3.5-5.1); Sodium 137 mEq/L (136-145); eGFR For African Americans > 60 (> 60); eGFR For Non-African Americans > 60 (> 60)
[2019-04-24] MEDS: Cefepime HCl 2,000 MG in Water for inj. (sterile) 20 ML IVP SCH ×2 (08:11→19:50)
[2019-04-24] MEDS: Ketorolac 30 MG/ML VIAL IVP SCH (08:12)
[2019-04-25 02:20] LABS: BUN/Creatinine Ratio 37 (6-26); Blood Urea Nitrogen 25 mg/dL (6-20); Carbon Dioxide 25 mEq/L (23-29); Chloride 103 mEq/L (98-107); Glucose 102 mg/dL (70-105); Osmolality,Calculated 285 (280-300); Potassium 4.3 mEq/L (3.5-5.1); Sodium 135 mEq/L (136-145); eGFR For African Americans > 60 (> 60); eGFR For Non-African Americans > 60 (> 60)
[2019-04-25] MEDS ORDERED: Lidocaine Viscous Oral Soln 15 ML SOLUTION MM PRN (09:37)
[2019-04-25] MEDS ORDERED: 0.9 % Sodium Chloride 500 ML IVC ONE (09:38)
[2019-04-25] MEDS: *HR* FentaNYL (PF) 100 MCG/2 ML VIAL IVP PRN ×2 (10:10→10:15)
[2019-04-25] MEDS: *HR* Midazolam HCl 5 MG/5 ML VIAL IVP PRN ×2 (10:10→10:15)
[2019-04-25] MEDS ORDERED: Lidocaine -MPF 1% 5 ML AMPUL INFILT ONE (10:20)
[2019-04-25] MEDS: *HR* OxyCODONE Immed Rel 5 MG TABLET PO PRN (11:41)
[2019-04-25] MEDS ORDERED: *HR* OxyCODONE Immed Rel 5 MG TABLET PO PRN (12:51)
[2019-04-26] MEDS: *HR* OxyCODONE Immed Rel 5 MG TABLET PO PRN ×2 (12:53→22:05)
[2019-04-26 13:20] LABS: BUN/Creatinine Ratio 28 (6-26); Blood Urea Nitrogen 21 mg/dL (6-20); eGFR For African Americans > 60 (> 60); eGFR For Non-African Americans > 60 (> 60)
[2019-04-27] MEDS: *HR* OxyCODONE Immed Rel 5 MG TABLET PO PRN ×3 (06:25→23:19)
[2019-04-27 07:43] LABS: Basophils # 0.1 K/mcL (0.0-0.2); Basophils % 0.9 %; Eosinophils # 0.3 K/mcL (0.0-0.6); Eosinophils % 3.6 %; Hematocrit 39.2 % (37.5-50.1); Hemoglobin 13.4 g/dL (12.9-16.9); Immature Granulocytes % 0.9 % (0-4); Lymphocytes # 2.6 K/mcL (0.6-4.6); Lymphocytes % 34.9 %; Mean Corpuscular HGB Conc 34.2 g/dL (31.6-35.5); Mean Corpuscular Hemoglobin 28.7 pg (28.0-33.3); Mean Corpuscular Volume 83.9 fL (83.0-100.0); Mean Platelet Volume 8.2 fL (9.4-12.4); Monocytes # 0.9 K/mcL (0.0-1.3); Monocytes % 11.4 %; Neutrophils # 3.6 K/mcL (1.6-8.9); Platelet Count 349 K/mcL (140-400); Red Blood Count 4.67 M/mcL (4.19-5.50); Red Cell Distribution Width 13.3 % (11.5-14.5); Segmented Neutrophils % 48.3 %; White Blood Count 7.4 K/mcL (4.3-11.1)
[2019-04-27 07:57] LABS: BUN/Creatinine Ratio 38 (6-26); Blood Urea Nitrogen 28 mg/dL (6-20); Calcium 9.2 mg/dL (8.6-10.3); Carbon Dioxide 28 mEq/L (23-29); Chloride 102 mEq/L (98-107); Glucose 105 mg/dL (70-105); Osmolality,Calculated 286 (280-300); Potassium 4.4 mEq/L (3.5-5.1); Sodium 135 mEq/L (136-145); eGFR For African Americans > 60 (> 60); eGFR For Non-African Americans > 60 (> 60)
[2019-04-27 09:13] LABS: HCV Quant Interpretation DETECTED (Not Detected); HCV Quant Log 2.22 log IU/mL
[2019-04-27] MEDS: Docusate Oral Soln 100 MG/10 ML UDC PO SCH (09:20)
[2019-04-27] MEDS: Acetaminophen 325 MG TABLET PO PRN (12:36)
[2019-04-27] MEDS ORDERED: Acetaminophen IV 500 MG/50 ML INFUS..BTL IVPB ONE (19:02)
[2019-04-28] MEDS: Acetaminophen 325 MG TABLET PO PRN ×2 (06:23→13:15)
[2019-04-28] MEDS: Docusate Oral Soln 100 MG/10 ML UDC PO SCH (08:10)
[2019-04-28] MEDS: *HR* OxyCODONE Immed Rel 5 MG TABLET PO PRN ×2 (08:13→16:21)
[2019-04-28] MEDS ORDERED: *HR* LORazepam 2 MG/ML VIAL IVP ONE (18:53)
[2019-04-29] MEDS: *HR* OxyCODONE Immed Rel 5 MG TABLET PO PRN ×2 (00:44→10:07)
[2019-04-29 07:40] LABS: Hematocrit 38.5 % (37.5-50.1); Hemoglobin 13.3 g/dL (12.9-16.9); Mean Corpuscular HGB Conc 34.5 g/dL (31.6-35.5); Mean Corpuscular Hemoglobin 28.9 pg (28.0-33.3); Mean Corpuscular Volume 83.7 fL (83.0-100.0); Mean Platelet Volume 8.1 fL (9.4-12.4); Platelet Count 346 K/mcL (140-400); Red Cell Distribution Width 13.3 % (11.5-14.5); White Blood Count 8.3 K/mcL (4.3-11.1)
[2019-04-29 08:02] LABS: BUN/Creatinine Ratio 42 (6-26); Blood Urea Nitrogen 29 mg/dL (6-20); Calcium 9.1 mg/dL (8.6-10.3); Carbon Dioxide 26 mEq/L (23-29); Chloride 104 mEq/L (98-107); Glucose 98 mg/dL (70-105); Osmolality,Calculated 288 (280-300); Potassium 4.2 mEq/L (3.5-5.1); Sodium 136 mEq/L (136-145); eGFR For African Americans > 60 (> 60); eGFR For Non-African Americans > 60 (> 60)
[2019-04-29] MEDS: Docusate Oral Soln 100 MG/10 ML UDC PO SCH (10:06)
[2019-04-29 15:38] VITALS: BP 113/70
[2019-04-29] MEDS ORDERED: *HR* OxyCODONE Immed Rel 5 MG TABLET PO ONE (17:02)
[2019-04-29] MEDS ORDERED: Aminoglycoside Consult 1 EACH MC ONE (18:27)
== END 2019-04-29 18:28 | DRG 710 ==
LOC: EMEROOARM 23:21 → 3BNU 23:21
PROVIDERS: ADMIT Internal Medicine; ATTEND Internal Medicine